=== PATIENT | female | born 2000 | race Caucasian/White ===

== ENCOUNTER 2021-08-16 08:25 | Outpatient (REF) | payer MEDICAID, SELFPAY ==
[2021-08-16 09:50] LABS: Appearance Urine CLEAR; Color Urine YELLOW; Glucose Urine UA NEG (NEG); Leukocyte Esterase Urine NEG (NEG); Nitrite Urine NEG (NEG); UACC Culture Trigger NO; Urine Blood TRACE (NEG); Urine Ketones NEG (NEG); Urine Protein NEG (NEG-TRACE)
[2021-08-16 10:11] LABS: C Reactive Protein 0.07 mg/dL (< or = 0.50)
[2021-08-16 10:16] LABS: RBC Urine 0-2 /HPF (0); Squamous Epithelial Cell Urine 1+ /LPF; WBC Urine 0 /HPF (0-4)
== END 2021-08-16 08:26 | disposition home or self-care (01) ==
LOC: HO.LAB 08:25
PROVIDERS: PCP Family Medicine; Visit Provider Nurse Practitioner
DX: R13.12 Dysphagia, oropharyngeal phase (principal); K62.5 Hemorrhage of anus and rectum
CPT/HCPCS: 36415; 81001; 82785; 86003; 86140; 99202

== ENCOUNTER 2022-02-21 12:25 | Day surgery (SDC) | payer MEDICAID, SELFPAY ==
[2022-02-21] MEDS: Lactated Ringers 1,000 ML 50 ML IVCONT (12:50)
[2022-02-21 12:56] VITALS: BMI 16.4
[2022-02-21 12:58] VITALS: BP 129/84; PULSE 93; RESP 18; TEMP 36.7; O2SAT 99
[2022-02-21 13:18] LABS: UPreg QC Valid YES; Urine Pregnancy NEGATIVE (NEGATIVE)
--- NOTE | 2022-02-21 13:48 | P.OP_ITS ---
Operative Note Operative Note Date of Service: 02/21/22 Narrative: Procedure:?Esophagogastroduodenoscopy and Colonoscopy Indication:?Dysphagia, unintentional weight loss, BRBPR Endoscopist:?Mini Golden MD Anesthesia Provider:?Dr Ana Lilia Valverde Anesthesia type:?MAC Instrument:?Olympus GIF-H190 and PCF-H190L ?? EGD Procedure:?? The procedure, indications, preparation and potential complications were reviewed with the patient, who indicated understanding and gave written informed consent to proceed. A physical exam was performed. The endoscope was introduced through the mouth, and advanced to the third part of duodenum. The mucosa was carefully examined on slow withdrawal of the endoscope. The patient tolerated the procedure well. There were no immediate complications.? ? EGD Findings:? * Esophagus:? Normal mucosa. Z line noted at 39 cm. No stricture was seen or fel t. * Stomach:?Normal stomach mucosa. Random cold forceps gastric biopsies were taken to rule out H Pylori infection.? * Duodenum:? Normal duodenum mucosa. Cold forceps biopsies were taken from duodenal bulb and second portion of the duodenum to rule out celiac sprue. Additional intervention: A soft-tip Savary wire was passed through the scope and advanced to the antrum. The gastroscope was then backed out and a 16 mm Savary- Jeovany bougie was advanced over the guidewire. Significant resistance was felt and therefore we elected to relook. A small linear tear was noted at the level of cricopharyngeus indicating succesful dilation. Colonoscopy Procedure:? The patient was then turned for the colonoscopy. A digital rectal exam was performed which was normal. The colonoscope was then inserted through the anus and advanced through the colon to the cecum at 75 cm and terminal ileum at 90 cm. The appendiceal orifice and ileocecal valve was identified.? Mucosa was carefully examined under high definition white light as the instrument was slowly withdrawn in a retrograde panoramic fashion. Retroflexion was performed in rectum. The procedure was not difficult. There were no immediate obvious complications. The quality of the prep was BBPS: 3+3+3 = excellent Withdrawal time 6 minutes. Limitations: No limitations Colonoscopy findings: Mucosa: Normal to cecum and terminal ileum. Protruding lesions: * Medium internal hemorrhoids without stigmata of recent bleeding.? Impression:? * Cricopharyngeal stenosis (dilation) * Normal appearing esophageal mucosa (biopsy) * Normal stomach (biopsy) * Normal duodenum (biopsy) * Normal colon and terminal ileum mucosa * Internal hemorrhoids Recommendations:?? * Intermittent BRBPR likely due to hemorrhoidal bleeding. * Await path results. * Repeat EGD will be set up in 6-8 weeks to upsize dilation to goal of 20 mm. * Resume CRC screening at 43 y.o * Avoid NSAIDs. Above has been reviewed with the patient. Relevant educational hand outs were provided at discharge.?
--- NOTE | 2022-02-21 13:48 | MHC.SHP ---
Pre-Procedural Eval Section A Date of Service: 02/21/22 Section B Chief Complaint: Dysphagia, rectal bleeding, unintentional wt loss Present Medications: see Short Stay Collaborative assessment Medical History: No relevant PMH History of Previous Operations: No relevant previous surgery Allergies: Allergies Allergy/AdvReac Type Severity Reaction Status Date / Time lidocaine Allergy Mild Hives Verified 02/21/22 12:43 benzoyl peroxide Allergy Hives Verified 02/21/22 12:43 Review of Systems Review of Systems Comment: 10 point ROS negative except as above Exam Exam Comment: Gen appear: No acute distress, well nourished HEENT: no icterus Chest: No overt resp distress Abd: soft, nontender, nondistended Psych: Stable affect, answering questions appropriately Neuro: A/Ox3 noted to move all extremities spontaneously Ext: no peripheral edema Plan Diagnosis/Plan: Unchanged I have reviewed the history and physical and performed a pertinent physical examination on my patient. No changes have occurred unless specified. Time Spent With Patient Time: Total time managing care of this patient today ____ minutes.
[2022-02-21 14:48] VITALS: BP 111/68; PULSE 86; RESP 18; TEMP 37.2; O2SAT 100
[2022-02-21 15:03] VITALS: BP 116/75; PULSE 76; RESP 18; TEMP 37.3; O2SAT 96
[2022-02-21 15:18] VITALS: BP 108/63; PULSE 74; RESP 16; TEMP 36.8; O2SAT 100
== END 2022-02-21 15:40 ==
PROVIDERS: Anesthesiology; Visit Provider Internal Medicine
PROC: (CPT 45378; principal; 2022-02-21 14:10)
DX: K62.5 Hemorrhage of anus and rectum (principal); K64.8 Other hemorrhoids; R13.12 Dysphagia, oropharyngeal phase; K22.2 Esophageal obstruction; R63.4 Abnormal weight loss; Z68.1 Body mass index [BMI] 19.9 or less, adult
CPT/HCPCS: 45378; 43248; 43239; 81025; 88305; 88342; C1769; J2250

== ENCOUNTER → 2022-03-08 12:00 | Outpatient (BNVA) | payer MEDICAID, SELFPAY | PROVIDERS: Visit Provider Nurse Practitioner | DX: R13.12 Dysphagia, oropharyngeal phase (principal); Z91.018 Allergy to other foods; Z98.890 Other specified postprocedural states | CPT/HCPCS: 99212 ==

== ENCOUNTER → 2022-04-29 13:53 | Outpatient (BNVA) | payer MEDICAID, SELFPAY | PROVIDERS: Visit Provider Internal Medicine | DX: R13.12 Dysphagia, oropharyngeal phase (principal); R68.89 Other general symptoms and signs; Z91.018 Allergy to other foods; Z98.890 Other specified postprocedural states | CPT/HCPCS: 99212 ==

== ENCOUNTER 2022-05-02 09:26 | Day surgery (SDC) | payer MEDICAID, SELFPAY ==
--- NOTE | 2022-05-01 13:20 | HO.ANESPROP2 ---
Documented by User: Mili Crow NP 05/01/22 13:21 HPI - Anesthesia Eval Consult details Narrative: 22yo F for Upper Endoscopy with Balloon Dilitation s/p EGD and [place] 01/2022 with MAC PMFSH Active Problems Active Problems: All Active Problems (Updated 04/29/22 @ 14:46 by Mini Golden MD) Unintentional weight change (Acute) Rectal bleeding (Acute) Abdominal pain (Acute) Migraines (Acute) Chronic fatigue (Acute) Rectal fissure (Acute) Dysphagia, oropharyngeal (Acute) Multiple food allergies (Acute) Past Medical History Medical History Dysphagia Internal hemorrhoids Family History Family History Father Heart disease Sister Rheumatic arteritis Crohn's disease Surgical History Surgical History H/O colonoscopy History of esophagogastroduodenoscopy (EGD) Hx of wisdom tooth extraction Social History Social History Household Members: Family Alcohol intake: current Alcohol intake frequency: holidays/special occasions only Patient Tobacco Use Status: Never used Tobacco Use of substances other than those prescribed or required for medical reasons: Yes Substance Use Frequency: Daily Are you DNR?: No Advance Directives: No Advance Directives Information Provided: Yes Meds Allergies Allergy/AdvReac Type Severity Reaction Status Date / Time lidocaine Allergy Mild Hives Verified 05/02/22 09:35 almond Allergy Unknown Verified 05/02/22 09:35 benzoyl peroxide Allergy Hives Verified 05/02/22 09:35 egg Allergy Unknown Verified 05/02/22 09:35 hazelnut Allergy Unknown Verified 05/02/22 09:35 peanut Allergy Unknown Verified 05/02/22 09:35 scallops Allergy Unknown Verified 05/02/22 09:35 sesame seed Allergy Unknown Verified 05/02/22 09:35 shrimp Allergy Unknown Verified 05/02/22 09:35 Home Medications Medication Instructions Recorded Confirmed Last Taken Type diclofenac sodium 75 mg 75 mg PO BID 03/08/22 04/29/22 Unknown History tablet,delayed release meloxicam 15 mg tablet 15 mg PO DAILY 03/08/22 04/29/22 Unknown History selenium sulfide 2.25 % shampoo ml topical 03/08/22 Unknown History tizanidine 2 mg tablet 2 mg PO BID PRN Muscle Pain 03/08/22 04/29/22 Unknown History Exam Exam Date and Time: May 01, 2022 1320 Assessment and Plan Assessment Anesthesia Assessment: Chart Reviewed Documented by User: Shelly Platt MD 05/02/22 10:22 [facility] Past Medical History Medical History Dysphagia Internal hemorrhoids Family History Family History Father Heart disease Sister Rheumatic arteritis Crohn's disease Family history of problems with anesthesia: No Surgical History Surgical History H/O colonoscopy History of esophagogastroduodenoscopy (EGD) Hx of wisdom tooth extraction History of Problems with Anesthesia: No Social History Social History Household Members: Family Alcohol intake: current Alcohol intake frequency: holidays/special occasions only Patient Tobacco Use Status: Never used Tobacco Use of substances other than those prescribed or required for medical reasons: Yes Substance Use Frequency: Daily Are you DNR?: No Advance Directives: No Advance Directives Information Provided: Yes Meds Allergies Allergy/AdvReac Type Severity Reaction Status Date / Time lidocaine Allergy Mild Hives Verified 05/02/22 09:35 almond Allergy Unknown Verified 05/02/22 09:35 benzoyl peroxide Allergy Hives Verified 05/02/22 09:35 egg Allergy Unknown Verified 05/02/22 09:35 hazelnut Allergy Unknown Verified 05/02/22 09:35 peanut Allergy Unknown Verified 05/02/22 09:35 scallops Allergy Unknown Verified 05/02/22 09:35 sesame seed Allergy Unknown Verified 05/02/22 09:35 shrimp Allergy Unknown Verified 05/02/22 09:35 Home Medications Medication Instructions Recorded Confirmed Last Taken Type diclofenac sodium 75 mg 75 mg PO BID 03/08/22 04/29/22 Unknown History tablet,delayed release meloxicam 15 mg tablet 15 mg PO DAILY 03/08/22 04/29/22 Unknown History selenium sulfide 2.25 % shampoo ml topical 03/08/22 Unknown History tizanidine 2 mg tablet 2 mg PO BID PRN Muscle Pain 03/08/22 04/29/22 Unknown History Exam Airway Mallampati Class: II TM Dist: >3cm Neck ROM: Full Heart: RRR Lungs: CTA Assessment and Plan Final Anesthetic Review Family History of Problems with Anesthesia: No History of Problems with Anesthesia: No NPO: Yes ASA Class: II Final Preanesthetic Review: No Changes in Pt Med Stat, Meds/Allgs Chart Reviewed, Consent Obtained/Reviewed and Anes Risks/Benef Reviewed Patient Risk: Low Anesthetic Plan Anesthetic Plan: MAC: Disposition: Standard PACU
[2022-05-02 06:19] VITALS: BMI 15.5
--- NOTE | 2022-05-02 08:53 | MHC.SHP ---
Pre-Procedural Eval Section A Date of Service: 05/02/22 The History & Physical has been completed within 30 days and I have reviewed it.: Yes Section B Chief Complaint: Dysphagia, oropharyngeal phase Allergies: Allergies Allergy/AdvReac Type Severity Reaction Status Date / Time lidocaine Allergy Mild Hives Verified 04/29/22 14:06 almond Allergy Unknown Verified 04/29/22 14:06 benzoyl peroxide Allergy Hives Verified 04/29/22 14:06 egg Allergy Unknown Verified 04/29/22 14:06 hazelnut Allergy Unknown Verified 04/29/22 14:06 peanut Allergy Unknown Verified 04/29/22 14:06 scallops Allergy Unknown Verified 04/29/22 14:06 sesame seed Allergy Unknown Verified 04/29/22 14:06 shrimp Allergy Unknown Verified 04/29/22 14:06 Plan Diagnosis/Plan: Unchanged I have reviewed the history and physical and performed a pertinent physical examination on my patient. No changes have occurred unless specified. Time Spent With Patient Time: Total time managing care of this patient today ____ minutes.
[2022-05-02 09:37] VITALS: BMI 16.4
[2022-05-02 09:44] VITALS: BP 116/70; PULSE 68; RESP 16; TEMP 36.8; O2SAT 100
--- NOTE | 2022-05-02 09:50 | P.OP_ITS ---
Operative Note Operative Note Date of Service: 05/02/22 Narrative: Procedure: Esophagogastroduodenoscopy Endoscopist: Mini Golden MD Indication: Dysphagia Anesthesia Provider: Dr Shelly Bettencourt Anesthesia Type: MAC ?? EGD Procedure:?? The procedure, indications, preparation and potential complications were reviewed with the patient, who indicated understanding and gave written informed consent to proceed. A physical exam was performed. The endoscope was introduced through the mouth, and advanced to the second part of duodenum. The mucosa was carefully examined on slow withdrawal of the endoscope. The patient tolerated the procedure well. There were no immediate complications.? ? EGD Findings:? * Esophagus:? Normal mucosa was noted in the entire esophagus. Z line noted at 39 cm. Mild narrowing was felt at the UES but scoped traversed through it easily. * Stomach:?Normal stomach mucosa. * Duodenum:? Normal duodenum mucosa. Additional intervention:?A soft-tip Savary wire was passed through the scope and advanced to the antrum. The gastroscope was then backed out and a 16 mm Savary- Jeovany bougie was advanced over the guidewire. Significant resistance was felt and therefore we elected to relook. A small linear tear with scant heme was noted at the level of cricopharyngeus indicating successful dilation. ? EGD Impressions:? * Cricopharyngeal stenosis (dilation) * Normal stomach * Normal duodenum ?? Recommendations:?? * Repeat EGD to be set up in 6-8 weeks to allow for serial dilation * Barium esophagogram ordered to r/o cricopharyngeal bar. Above has been reviewed with the patient. Relevant educational hand outs were provided at discharge.
[2022-05-02 09:53] LABS: UPreg QC Valid YES; Urine Pregnancy NEGATIVE (NEGATIVE)
[2022-05-02] MEDS: Lactated Ringers 1,000 ML 100 ML IVCONT (09:54)
[2022-05-02 11:13] VITALS: BP 90/54; PULSE 72; RESP 16; TEMP 36.9; O2SAT 98
[2022-05-02 11:28] VITALS: BP 100/62; PULSE 61; RESP 16; TEMP 37; O2SAT 100
--- NOTE | 2022-05-02 13:28 | HO.POSTANES ---
Post Anesthesia Evaluation Post Anesthesia Evaluation Vital Signs: Vital Signs Temp Pulse Resp BP Pulse Ox O2 Del Method 05/02/22 11:28 98.6 F 61 16 100/62 100 Room Air 05/02/22 11:13 98.5 F 72 16 90/54 L 98 Room Air 05/02/22 09:44 98.3 F 68 16 116/70 100 Room Air Anesthesia: Monitored Mental Status: Awake Pain Control: Satisfactory Nausea/Vomiting: None Hydration: Adequate Anesthesia-Related Issues: No Anes. Related Issues
== END 2022-05-02 12:05 | disposition home or self-care (01) ==
PROVIDERS: Nurse Practitioner; Visit Provider Internal Medicine
PROC: (CPT 43248; principal; 2022-05-02 10:40)
DX: R13.12 Dysphagia, oropharyngeal phase (principal); K22.4 Dyskinesia of esophagus; Z79.899 Other long term (current) drug therapy
CPT/HCPCS: 43248; 81025; C1769

== ENCOUNTER → 2022-05-15 14:30 | Outpatient (BNVA) | payer MEDICAID, SELFPAY | PROVIDERS: Visit Provider Nurse Practitioner | DX: R13.12 Dysphagia, oropharyngeal phase (principal); Z91.018 Allergy to other foods | CPT/HCPCS: 99212 ==

== ENCOUNTER 2022-07-24 10:40 | Outpatient (REF) | payer MEDICAID, SELFPAY ==
--- NOTE | ~2022-07-24 | XR_ITS ---
EXAMINATION: XR SKULL CLINICAL INFORMATION: Bump top of the right side of head COMPARISON: None available. TECHNIQUE: 5 views of the skull were obtained. FINDINGS: There is a benign-appearing bony protuberance or focal area of cortical thickening seen on the lateral view posteriorly at the parietal occipital bone junction. This is not appreciated on any other view. No fracture, dislocation or suspicious bone lesion. Paranasal sinuses are clear. Soft tissues are normal. XR/XR skull min 4V IMPRESSION: Benign-appearing bony protuberance or focal area of cortical thickening seen on the lateral view only at the parietal occipital bone junction. It is uncertain whether this corresponds to palpable abnormality. No suspicious bone lesion fracture or soft tissue abnormality seen.
== END 2022-07-24 10:41 | disposition home or self-care (01) ==
LOC: HO.XRAY 10:40
PROVIDERS: PCP Student in an Organized Health Care Education/Training Program; Visit Provider Student in an Organized Health Care Education/Training Program
DX: M99.9 Biomechanical lesion, unspecified (principal)
CPT/HCPCS: 70260

== ENCOUNTER 2023-08-01 09:26 | Outpatient (AMB) | payer OTHER, SELFPAY ==
--- NOTE | 2023-08-01 09:29 | A.OFFVIS_ITS ---
Vital Signs 08/01/23 09:34 Height 5 ft 7 in Weight 94 lb BMI 14.7 BP 110/69 Blood Pressure Location Lt brachial Position Sitting Pulse 76 Intake Visit Reasons: Dysphagia follow up Intake Note: Patient follow up for Dysphagia. Patient cc: abdominal pain/bloating, sexually activities are painful, ad swallowing with solid and liquid. Metallographer Required: No Accompanied by: Self / Same As Patient Allergies lidocaine Allergy (Mild, Verified 08/01/23 09:28) Hives almond Allergy (Verified 08/01/23 09:28) Unknown benzoyl peroxide Allergy (Verified 08/01/23 09:28) Hives egg Allergy (Verified 08/01/23 09:28) Unknown hazelnut Allergy (Verified 08/01/23 09:28) Unknown peanut Allergy (Verified 08/01/23 09:28) Unknown scallops Allergy (Verified 08/01/23 09:28) Unknown sesame seed Allergy (Verified 08/01/23 09:28) Unknown shrimp Allergy (Verified 08/01/23 09:28) Unknown soy Allergy (Verified 08/01/23 09:28) Unknown wheat Allergy (Verified 08/01/23 09:28) Unknown HPI HPI Dysphagia follow up : Details: Assessment & Plan (1) Dysphagia, oropharyngeal: Code(s): R13.12 - Dysphagia, oropharyngeal phase Plan: Her swallow still is not much improved. She is aware of the barium swallow appt and that Dr. Golden needs to re dialate her. She says that she recovered more quickly after this procedure than the 1st 1 but the results have not yet been what we would like. She is again reminded of safe swallowing precautions and to cut thing small, chew thoroughly, and to try to avoid conversing well eating so that she will choke via distraction. She may want to eat soft foods in keep water near by to facilitate swallowing. ROV after swallow. BARIUM SWALLOW Not obtained On 06/18/22 @ 14:58 Jessica Kathleen Wrote To Pt did not show for barium swallow scheduled on 06/13/22. I called her and left VM informing about appt cancelation and placed order barber apprentice message to have Pt barium swallow R/S 'd. Pt to call back with any question. On 06/18/22 @ 10:34 Deb Montano Wrote To Jessica Kathleen V please check this, the problem is not that it is not read, but that it appears to not have been obtaind at all. On 06/18/22 @ 10:14 Becca Kenyon Wrote To Deb Montano (2) I called to have it read On 06/17/22 @ 12:49 Deb Montano Wrote To Becca Kenyon (2) This patient is on my schedule for follow-up after her barium swallow, however the study has not yet been obtained.? Please find out when it is scheduled for and have her follow-up with the study will be available. TODAYS VISIT PATIENT HAS BEEN LOST TO FOLLOW-UP SINCE 04/2022 She is still having dyphagia, but she started to feel like something is moving sideways when she swallows. She is managing this with safe swallowing. However she is being dxed with Sjogrens syndrome. She had bleeding for about a month - used OTC Prep H but did not help at first. Physical exam shows piles at 12: 00 but mostly internal. Having colicky pain with intercourse, very severe. Trial of bentyl. Also discussed Calmoseptine. She gained wt with her allergy diet but then it was too time consuming and she lapsed and lost weight. rOV 8 weeks. [facility] Medical History (Updated 07/02/22 @ 09:09 by Jasmin Garcia RN) History of headache Dysphagia Internal hemorrhoids Surgical History History of esophagogastroduodenoscopy (EGD) H/O colonoscopy Hx of wisdom tooth extraction Family History Father Heart disease Sister Rheumatic arteritis Crohn's disease Social History Household Members: Family Are you a primary health care coordinator to a significant other at home: No Do you presently have visiting nurse or other home services: No Alcohol intake: current Alcohol intake frequency: holidays/special occasions only Patient Tobacco Use Status: Never used Tobacco Review of Systems Const Denies fatigue, Denies fever(s), Denies night sweats, Denies poor appetite, Reports weight gain and Reports weight loss ENT Reports Normal hearing present, Denies dental pain, Reports dysphagia, Denies hearing loss, Denies mouth pain, Denies odynophagia, Denies throat swelling, Denies tongue swelling and Reports other (Dentition adequate) Card Reports no additional complaints Resp Reports no additional complaints GI Details: Reports abdominal pain, Denies melena, Denies bloating, Reports hematochezia, Denies constipation, Reports GI cramping, Reports dysphagia, Denies excessive flatus, Denies early satiety, Denies heartburn, Denies diarrhea, Denies nausea, Denies odynophagia, Denies vomiting and Denies hematemesis Skin/Breast Denies pruritus, Denies lesions, Denies rash and Denies jaundice Neuro Reports Normal hearing present and Denies Abnormal speech present Endo Denies fatigue Aller/Immun Denies throat swelling and Denies tongue swelling Physical Exam Vital Signs: Last Vital Signs Pulse 76 08/01/23 09:34 BP 110/69 08/01/23 09:34 BMI result Body Mass Index 14.7 Const General: cooperative, no acute distress, well developed and well groomed Nutritional Appearance: well nourished and thin Orientation/consciousness: oriented to person, oriented to place and oriented to time Limitations: No language barrier HEENT Head: Yes normocephalic and Yes atraumatic Eyes General: appearance normal, both eyes and all related structures Pupils: Equal, round and reactive pupils present Neck Neck: Yes normal visual inspection and Yes no lymphadenopathy Thyroid: Thyroid normal Resp Effort & Inspection: normal respiratory effort and able to speak in complete sentences Auscultation: clear to auscultation bilaterally Cardio Rate: regular rate Rhythm: regular rhythm Heart sounds: Normal, physiologic split S2 sound present Peripheral pulses: radial pulses present and posterior tibial pulses present GI Inspection: No distended and No Abdominal panniculus present Palpation (GI): Soft to palpation, nontender, no guarding, not rigid and No hepatosplenomegaly present Percussion: Yes normal to percussion Auscultation: normal bowel sounds Rectal Exam - Female: deferred Skin General skin exam: no rashes or lesions noted, turgor normal, skin not dry, no jaundice, No spider nevi and no striae Rashes: no rashes Nails: normal Neuro General: oriented to person, oriented to place and oriented to time Cranial nerves: Yes Equal, round and reactive pupils present and Yes Normal hearing present Speech: No Abnormal speech present Extrem General: Yes normal to inspection, No clubbing, No cyanosis and No edema Psych Appearance: grossly normal and well kempt Mental Status: mental status grossly normal Speech and movement: Normal speech and movement present Affect: normal affect Attitude: cooperative Thought process: Normal thought process present and not confabulating Thought content: Normal thought content present Insight: Fair insight present (Psych) and Limited insight present (Psych) Judgement: Fair judgement present (Psych) and Limited judgement present (Psych) Assessment & Plan Assessment & Plan (1) Abdominal pain: Code(s): R10.9 - Unspecified abdominal pain Category: Medical (2) Dysphagia, oropharyngeal: Code(s): R13.12 - Dysphagia, oropharyngeal phase Category: Medical Plan PATIENT HAS BEEN LOST TO FOLLOW-UP SINCE 04/2022 She is still having dyphagia, but she started to feel like something is moving sideways when she swallows. She is managing this with safe swallowing. However she is being dxed with Sjogrens syndrome. She had bleeding for about a month - used OTC Prep H but did not help at first. Physical exam shows piles at 12: 00 but mostly internal. Having colicky pain with intercourse, very severe. Trial of bentyl. Also discussed Calmoseptine. She gained wt with her allergy diet but then it was too time consuming and she lapsed and lost weight. rOV 8 weeks. Medications: New dicyclomine 10 mg PO QID 120 caps 3RF R10.9 - Unspecified abdominal pain Coding Level of Care Code Est Pt Level 3 (39748) Diagnoses Abdominal pain R10.9 Dysphagia, oropharyngeal R13.12
[2023-08-01 09:34] VITALS: BP 110/69; PULSE 76; BMI 14.7
== END 2023-08-01 10:09 | disposition home or self-care (01) ==
PROVIDERS: PCP Student in an Organized Health Care Education/Training Program; Visit Provider Nurse Practitioner
DX: R10.9 Unspecified abdominal pain (principal); R13.12 Dysphagia, oropharyngeal phase
CPT/HCPCS: 99213

== ENCOUNTER → 2023-08-01 09:26 | Outpatient (BNVA) | payer OTHER, SELFPAY | PROVIDERS: PCP Student in an Organized Health Care Education/Training Program; Visit Provider Nurse Practitioner | DX: R13.12 Dysphagia, oropharyngeal phase (principal); R10.9 Unspecified abdominal pain | CPT/HCPCS: 99212 ==

== ENCOUNTER 2023-09-26 15:43 | Outpatient (AMB) | payer OTHER, SELFPAY ==
--- NOTE | 2023-09-26 15:52 | A.OFFVIS_ITS ---
Vital Signs 09/26/23 15:55 Height 5 ft 7 in Weight 104 lb 0.931 oz BMI 16.3 Intake Visit Reasons: 8 week follow up Intake Note: Patient in office today in follow up of abdominal pain and dysphagia. CC: Per patient stools are not how they shoud be , she went back to allergen free diet. But she states that she still has trouble when going to the bathroom. She states that her stools are a yellowish tanned color and like fluffy . She gets abdominal pain when she needs to have a BM. Allergies lidocaine Allergy (Mild, Verified 08/01/23 09:28) Hives almond Allergy (Verified 08/01/23 09:28) Unknown benzoyl peroxide Allergy (Verified 08/01/23 09:28) Hives egg Allergy (Verified 08/01/23 09:28) Unknown hazelnut Allergy (Verified 08/01/23 09:28) Unknown peanut Allergy (Verified 08/01/23 09:28) Unknown scallops Allergy (Verified 08/01/23 09:28) Unknown sesame seed Allergy (Verified 08/01/23 09:28) Unknown shrimp Allergy (Verified 08/01/23 09:28) Unknown soy Allergy (Verified 08/01/23 09:28) Unknown wheat Allergy (Verified 08/01/23 09:28) Unknown HPI HPI 8 week follow up: Details: Assessment & Plan (1) Abdominal pain: Code(s): R10.9 - Unspecified abdominal pain Category: Medical (2) Dysphagia, oropharyngeal: Code(s): R13.12 - Dysphagia, oropharyngeal phase Category: Medical Plan PATIENT HAS BEEN LOST TO FOLLOW-UP SINCE 04/2022 She is still having dyphagia, but she started to feel like something is moving sideways when she swallows. She is managing this with safe swallowing. However she is being dxed with Sjogrens syndrome. She had bleeding for about a month - used OTC Prep H but did not help at first. Physical exam shows piles at 12: 00 but mostly internal. Having colicky pain with intercourse, very severe. Trial of bentyl. Also discussed Calmoseptine. She gained wt with her allergy diet but then it was too time consuming and she lapsed and lost weight. rOV 8 weeks. Medications: New dicyclomine 10 mg PO QID 120 caps 3RF R10.9 - Unspecified abdominal pain TODAYS VISIT Her swallowing remains the same. She has had some improvement after dilations in the past but it is short-lived. Given the fact that she has a probable or possible diagnosis of Sjogren's syndrome I think we need to wait to see if this needs to be corrected before we do further dilations. Fortunately the pain with intercourse mysteriously vanished after seeing me which is fine. The same is the same is true of her rectal bleeding. For now I think will cautiously wait and watch as she also is being worked up for possible POTS. Return office visit in 6 months and she is welcome to call me if any symptoms worsen or return. [facility] Medical History History of headache Dysphagia Internal hemorrhoids Surgical History History of esophagogastroduodenoscopy (EGD) H/O colonoscopy Hx of wisdom tooth extraction Family History Father Heart disease Sister Rheumatic arteritis Crohn's disease Social History Household Members: Family Are you a primary certified caregiver to a significant other at home: No Do you presently have visiting nurse or other home services: No Alcohol intake: current Alcohol intake frequency: holidays/special occasions only Patient Tobacco Use Status: Never used Tobacco Review of Systems Const Denies fatigue, Denies fever(s), Denies night sweats, Denies poor appetite and Denies weight loss ENT Reports Normal hearing present, Denies dental pain, Reports dysphagia, Denies he aring loss, Denies mouth pain, Denies odynophagia, Denies throat swelling, Denies tongue swelling and Reports other (Dentition adequate) Card Reports lightheadedness Resp Reports no additional complaints GI Details: Denies abdominal pain, Denies melena, Denies bloating, Denies hematochezia, Denies constipation, Denies GI cramping, Reports dysphagia, Denies excessive flatus, Denies early satiety, Denies heartburn, Denies diarrhea, Denies nausea, Denies odynophagia, Denies vomiting and Denies hematemesis Skin/Breast Denies pruritus, Denies lesions, Denies rash and Denies jaundice Neuro Reports Normal hearing present and Denies Abnormal speech present Endo Denies fatigue Aller/Immun Denies throat swelling and Denies tongue swelling Physical Exam Vital Signs: BMI result Body Mass Index 16.3 Const General: cooperative, no acute distress, well developed and well groomed Nutritional Appearance: well nourished, obese and thin Orientation/consciousness: oriented to person, oriented to place and oriented to time Limitations: No language barrier HEENT Head: Yes normocephalic and Yes atraumatic Eyes General: appearance normal, both eyes and all related structures Pupils: Equal, round and reactive pupils present Neck Neck: Yes normal visual inspection and Yes no lymphadenopathy Thyroid: Thyroid normal Resp Effort & Inspection: normal respiratory effort and able to speak in complete sentences Auscultation: clear to auscultation bilaterally Cardio Rate: regular rate Rhythm: regular rhythm Heart sounds: Normal, physiologic split S2 sound present Peripheral pulses: radial pulses present and posterior tibial pulses present GI Inspection: No distended and No Abdominal panniculus present Palpation (GI): Soft to palpation, nontender, no guarding, not rigid and No hepatosplenomegaly present Percussion: Yes normal to percussion Auscultation: normal bowel sounds Rectal Exam - Female: deferred Skin General skin exam: no rashes or lesions noted, turgor normal, skin not dry, no jaundice, No spider nevi and no striae Rashes: no rashes Nails: normal Neuro General: oriented to person, oriented to place and oriented to time Cranial nerves: Yes Equal, round and reactive pupils present and Yes Normal hearing present Speech: No Abnormal speech present Extrem General: Yes normal to inspection, No clubbing, No cyanosis and No edema Psych Appearance: grossly normal and well kempt Mental Status: mental status grossly normal Speech and movement: Normal speech and movement present Affect: normal affect Attitude: cooperative Thought process: Normal thought process present and not confabulating Thought content: Normal thought content present Insight: Fair insight present (Psych) Judgement: Fair judgement present (Psych) Assessment & Plan Assessment & Plan (1) Multiple food allergies: Comment: Hazelnuts, shrimp, peanuts, eggs, mild, soy scallops, sesame, almonds Code(s): Z91.018 - Allergy to other foods Category: Medical (2) Dysphagia, oropharyngeal: Code(s): R13.12 - Dysphagia, oropharyngeal phase Category: Medical (3) Abdominal pain: Code(s): R10.9 - Unspecified abdominal pain Category: Medical Plan Her swallowing remains the same. She has had some improvement after dilations in the past but it is short-lived. Given the fact that she has a probable or possible diagnosis of Sjogren's syndrome I think we need to wait to see if this needs to be corrected before we do further dilations. Fortunately the pain with intercourse mysteriously vanished after seeing me which is fine. The same is the same is true of her rectal bleeding. For now I think will cautiously wait and watch as she also is being worked up for possible POTS. Return office visit in 6 months and she is welcome to call me if any symptoms worsen or return. Coding Level of Care Code Est Pt Level 3 (59997) Diagnoses Multiple food allergies Z91.018 Dysphagia, oropharyngeal R13.12 Abdominal pain R10.9
[2023-09-26 15:55] VITALS: BMI 16.3
== END 2023-09-26 17:00 | disposition home or self-care (01) ==
PROVIDERS: PCP Student in an Organized Health Care Education/Training Program; Visit Provider Nurse Practitioner
DX: Z91.018 Allergy to other foods (principal); R13.12 Dysphagia, oropharyngeal phase; R10.9 Unspecified abdominal pain
CPT/HCPCS: 99213

== ENCOUNTER → 2023-09-26 15:43 | Outpatient (BNVA) | payer OTHER, SELFPAY | PROVIDERS: PCP Student in an Organized Health Care Education/Training Program; Visit Provider Nurse Practitioner | DX: Z91.018 Allergy to other foods (principal); R13.12 Dysphagia, oropharyngeal phase; R10.9 Unspecified abdominal pain | CPT/HCPCS: 99212 ==

== ENCOUNTER 2024-01-20 12:50 | Outpatient (REF) | payer OTHER, SELFPAY ==
[2024-01-21 08:10] LABS: HBS Num1 73.96 mIU/mL (0-7.99); ~Hepatitis B Surface Antibody REACTIVE (Nonreactive)
[2024-01-23 07:29] LABS: TS Negative Control Passed; TS Panel A 0; TS Panel B 0; TS Positive Control Passed; TSpotTB Negative (Negative)
== END 2024-01-20 12:51 | disposition home or self-care (01) ==
LOC: HO.HHCL 12:50
PROVIDERS: Visit Provider Student in an Organized Health Care Education/Training Program
DX: Z00.00 Encounter for general adult medical examination without abnormal findings (principal); Z11.1 Encounter for screening for respiratory tuberculosis
CPT/HCPCS: 36415; 86481; 86706